=== PATIENT | female | born 1940 | race Asian ===

== ENCOUNTER 2019-06-07 14:34 | Inpatient (IN) | payer OTHER, MEDICAID ==
[~2019-06-07] VITALS: Ht 152.4 cm; Wt 66.8 kg
[2019-06-07 17:04] VITALS: BP_SYST 125
--- NOTE | 2019-06-07 17:07 | NUR ---
ADMISSION NOTES RECEIVED FROM LILY MANJARREZ, DIRECT ADMIT. PATIENT HAD A GRAHAM CATHETER CLOUDY URINE OUTPUT NOTED. RE-INSERT NEW GRAHAM CATHETER PER HOSPITAL PROTOCOL. MRSA NARES COLLECTED FROM PATIENT.
[2019-06-07] MEDS ORDERED: MERI500 IV (17:29)
[2019-06-07] MEDS ORDERED: IPRA3AMP9 INH (17:29)
[2019-06-07] MEDS ORDERED: DOCU-144 PO (17:29)
[2019-06-07] MEDS ORDERED: GUAI5SYR4 PO (17:29)
[2019-06-07] MEDS ORDERED: DIF100 PO (17:29)
[2019-06-07] MEDS ORDERED: DEXT50DI5 IV (17:29)
[2019-06-07] MEDS ORDERED: ACET-2165 PO (17:29)
--- NOTE | 2019-06-07 17:32 | NUR ---
Paged Dr. Veronica for admitting order.
[2019-06-07] MEDS ORDERED: TEMA15CA5 PO (17:48)
[2019-06-07] MEDS ORDERED: PRED20TA PO (17:48)
[2019-06-07] MEDS ORDERED: ANT30 PO (17:48)
[2019-06-07] MEDS ORDERED: MORPHINE SULFATE IVP (17:48)
[2019-06-07] MEDS ORDERED: VANCOMYCIN (17:48)
[2019-06-07] MEDS ORDERED: REGULAR INSULIN SUBCUT (17:48)
[2019-06-07] MEDS ORDERED: MORPHINE SULFATE IVF (17:48)
[2019-06-07] MEDS ORDERED: Zofran IVP (17:48)
--- NOTE | 2019-06-07 17:50 | NUR ---
Surgical consult called: for Josh Smith, regarding perforated abdomen, ordered by Dr. Veronica, spoke with Peg.
--- NOTE | 2019-06-07 18:02 | NUR ---
ID consult called: for Rosa Alexander, regarding sepsis, ordered by Dr. Veronica, spoke with Stella.
[2019-06-07 19:09] LABS: BILIRUBIN,URINE NEGATIVE (NEGATIVE); BLOOD, URINE 3+ (NEGATIVE); CLARITY/URINE SL CLOUDY (CLEAR); COLOR,URINE ORANGE (YELLOW); GLUCOSE,URINE NEGATIVE (NEGATIVE); KETONES,URINE 2+ (NEGATIVE); LEUKOCYTE ESTERASE ,URINE 1+ (NEGATIVE); NITRITE, URINE POSITIVE (NEGATIVE); PROTEIN URINE 2+ (NEGATIVE)
[2019-06-07 19:20] LABS: UROBILINOGEN,URINE >=8 (0.2-1.0)
[2019-06-07] MEDS ORDERED: VANCOMYCIN HCL 1,000 MG in NS 250 ML IV ONE (19:30)
[2019-06-07 19:38] LABS: BACTERIA,URINE MODERATE /HPF (None Seen); WBC,URINE 50-80 /HPF (0-3)
[2019-06-07 19:39] LABS: MUCUS,URINE None Seen /LPF (None Seen); YEAST,URINE Moderate /HPF (None Seen)
[2019-06-07 20:00] VITALS: BP_SYST 133
[2019-06-07] MEDS: D5/0.45 NS 1,000 ML IV SCH (20:10)
[2019-06-07 20:28] LABS: BASOPHILS % (AUTO) 0.1 % (0.0-2.0); EOSINOPHILS % (AUTO) 0.1 % (0.0-4.0); HEMATOCRIT 32.4 % (36-48); LYMPHOCYTES # (AUTO) 0.2 K/uL (1.0-5.5); LYMPHOCYTES % (AUTO) 2.7 % (20.5-51.5); MEAN CORPUSCULAR HEMOGLOBIN 33 pg (27-31); MEAN CORPUSCULAR HGB CONC 34 % (32-36); MEAN CORPUSCULAR VOLUME 96 fL (79.0-98.0); MONOCYTES # (AUTO) 0.3 K/uL (0.0-1.0); MONOCYTES % (AUTO) 3.6 % (1.7-9.3); NEUTROPHILS # (AUTO) 8.1 K/uL (1.8-7.7); NEUTROPHILS % (AUTO) 93.5 % (40.0-70.0); PLATELET COUNT (AUTO) 133 K/uL (130-430); RED BLOOD CELL COUNT(AUTO) 3.37 MIL/uL (4.2-6.2); RED CELL DISTRIBUTION WIDTH 14.6 % (9.0-15.0); WHITE BLOOD COUNT (AUTO) 8.7 K/uL (4.8-10.8)
--- NOTE | 2019-06-07 20:28 | NUR ---
NOTES: Dr. Scott called and updated on pt. status, family at bedside and asked pt. if having abdominal pain and denies any discomfort, no abdominal distention noted, abdomen soft to touch. kept NPO.Dr. Scott ordered stat CT scan of abdomen.
--- NOTE | 2019-06-07 20:51 | NUR ---
PAGED PAGING DR. DELMIS PRO FOR CLARIFICATION OF ORDERS, SPOKE WITH PEG.
--- NOTE | 2019-06-07 21:03 | NUR ---
NOTES: called Dr. Scott, order to transfer to ICU, verified about the transfer, the reason is because pt. has large amts. of free air. no result for the stat CT that was done. charge nurse Karolyn koroma and wind operations supervisor.
--- NOTE | 2019-06-07 21:17 | NUR ---
NOTES: DR. PRO here at bedside, about to transfer to ICU via bed. report given to nurse Saab. transferred with [facility] nurse Parr and leather products supervisor Amanuel .
[2019-06-07 21:30] VITALS: BP_SYST 133
--- NOTE | 2019-06-07 21:30 | NUR ---
TRANSFER ASSESSMENT Received pt from [employer], pt placed in ICU room 5 and placed on conveyor monitor. Family at bedside. VSS with SR seen on the monitor. Pt on RA tolerating well with O2 sats @ 97% and even and unlabored breathing. Pt has a TAWANNA midline, infusing d5 1/2 ns @ 60 cc/hr. Mcgovern Cath noted draining urine to gravity. Bed is locked and in lowest position, call light within reach, will cont to monitor.
--- NOTE | 2019-06-07 21:50 | NUR ---
PAGED Paged Sara Alexander for cardiac clearance Spoke for Chasity
[2019-06-07 21:57] LABS: ANION GAP 6 (5-15); CHLORIDE 102 mmol/L (98-107); GLUCOSE 144 mg/dL (70-99); POTASSIUM 3.6 mmol/L (3.5-5.1); SODIUM SERUM 136 mmol/L (136-145); UREA NITROGEN, BLOOD 24 mg/dL (8-21)
[2019-06-07 22:00] VITALS: BP_SYST 138
[2019-06-07 22:02] LABS: ALANINE AMINOTRANSFERASE 57 U/L (12-78); ALBUMIN 1.6 g/dL (3.4-4.8); ASPARTATE AMINOTRANSFERASE 52 U/L (10-37); INR 1.1 (0.8-1.2); PROTHROMBIN TIME 10.8 SECS (9.5-12.5); TOTAL BILIRUBIN 1.9 mg/dL (0.0-1.0)
[2019-06-07] MEDS ORDERED: PIPERACILLIN/TAZOBACTAM 3.375 GM/VIAL (ZOSYN) IV ONE (22:34)
[2019-06-07] MEDS: metroNIDAZOLE 500 mg/NS 100 ML IV SCH (22:39)
[2019-06-07 23:00] VITALS: BP_SYST 127
[2019-06-08] VITALS (27 sets, daily range): BP systolic 91–155
--- NOTE | 2019-06-08 00:10 | NUR ---
Pt in bed with eyes closed resting comfortably. No signs of acute distress or discomfort noted. Will cont to monitor pt.
[2019-06-08] MEDS: PIPERACILLIN/TAZO 3.375/DEX-IS 50 ML IV SCH ×4 (00:41→17:52)
--- NOTE | 2019-06-08 02:47 | NUR ---
Pt desats into the high 80's. Pt placed on 2L O2 via NC. Pt tolerating well with O2 sats @ 99% and even and unlabored breathing. Will cont to monitor pt.
--- NOTE | 2019-06-08 04:10 | NUR ---
Pt in bed with eyes closed resting comfortably, no signs of acute distress or discomfort noted. Pt repositioned at this time, pt tolerated well. Will cont to monitor pt.
[2019-06-08] MEDS: metroNIDAZOLE 500 mg/NS 100 ML IV SCH ×3 (05:09→22:14)
[2019-06-08 06:10] LABS: BASOPHILS % (AUTO) 0.2 % (0.0-2.0); EOSINOPHILS % (AUTO) 0.4 % (0.0-4.0); HEMATOCRIT 32.8 % (36-48); LYMPHOCYTES # (AUTO) 0.4 K/uL (1.0-5.5); LYMPHOCYTES % (AUTO) 4.4 % (20.5-51.5); MEAN CORPUSCULAR HEMOGLOBIN 32 pg (27-31); MEAN CORPUSCULAR HGB CONC 34 % (32-36); MEAN CORPUSCULAR VOLUME 94 fL (79.0-98.0); MONOCYTES # (AUTO) 0.5 K/uL (0.0-1.0); MONOCYTES % (AUTO) 5.3 % (1.7-9.3); NEUTROPHILS # (AUTO) 8.3 K/uL (1.8-7.7); NEUTROPHILS % (AUTO) 89.7 % (40.0-70.0); PLATELET COUNT (AUTO) 148 K/uL (130-430); RED BLOOD CELL COUNT(AUTO) 3.48 MIL/uL (4.2-6.2); RED CELL DISTRIBUTION WIDTH 14.7 % (9.0-15.0); WHITE BLOOD COUNT (AUTO) 9.3 K/uL (4.8-10.8)
[2019-06-08 06:32] LABS: ALANINE AMINOTRANSFERASE 55 U/L (12-78); ALBUMIN 1.6 g/dL (3.4-4.8); ANION GAP 6 (5-15); ASPARTATE AMINOTRANSFERASE 48 U/L (10-37); CALCIUM 7.7 mg/dL (8.4-11.0); CHLORIDE 101 mmol/L (98-107); CREATININE 0.49 mg/dL (0.55-1.30); GLUCOSE 131 mg/dL (70-99); POTASSIUM 3.3 mmol/L (3.5-5.1); SODIUM SERUM 137 mmol/L (136-145); TOTAL BILIRUBIN 2.1 mg/dL (0.0-1.0); UREA NITROGEN, BLOOD 21 mg/dL (8-21)
--- NOTE | 2019-06-08 07:20 | NUR ---
Report given to oncoming RN using SBAR format and pt care was endorsed. No signs of acute distress or discomfort noted.
--- NOTE | 2019-06-08 07:26 | NUR ---
Opening Note: Received plan of care via sbar from endorsing nurse JODY Saab. Completed patient round.
--- NOTE | 2019-06-08 09:24 | NUR ---
Nutrition Update Kendell Scale 14 noted. Pt admitted for sepsis acute abdomen Diet: NPO BMI: 26.4 kg/m2 RD to follow per nutrition care standards.
[2019-06-08] MEDS: D5/0.45 NS 1,000 ML IV SCH ×2 (10:00→22:15)
--- NOTE | 2019-06-08 11:00 | NUR ---
Received call from Dr. Alexander who advised that he is not able to proceed with the ct guided drainage. There is too much free air. Dr. Alexander has tried contacting Dr. Scott to provide his recommendations but unable. Dr. Scott when called earlier at 1000 was in surgery.
--- NOTE | 2019-06-08 11:09 | NUR ---
Called Dr. Scott office left message for call back with legal receptionist. Per Spinner Hand Dr. Scott is doing a robotic aided surgery and wont be finished for another hour 1 or 2.
--- NOTE | 2019-06-08 11:53 | NUR ---
. PAGED DR PIERSON LEFT MESSAGE TO TOMASZ, TO NOTIFY OF PATIENT'S SURGERY TODAY AT 1500.
--- NOTE | 2019-06-08 13:57 | NUR ---
Noted ecchymosis around upper right arm midline puncture site. Site does not appear infiltrated, no drainage, no swelling at site. Site is still patent.
--- NOTE | 2019-06-08 19:10 | NUR ---
RECEIVED NURSING REPORT FROM DAY SHIFT CHRIS Jarvis, PATIENT WAS IN O.R DURING ABDOMEN SURGERY NOW
--- NOTE | 2019-06-08 19:24 | NUR ---
Closing Note Provided plan of care to receiving JODY Terrell via sbar.
[2019-06-08] MEDS ORDERED: HYDROcodone/ACETAMIN 5-325 MG TAB (NORCO/ VICODIN) PO PRN (20:30)
[2019-06-08] MEDS ORDERED: fentaNYL CITRATE/PF 100 MCG/2 ML AMP IVP PRN ×2 (20:30)
[2019-06-08] MEDS ORDERED: HYDROmorphone 2 MG/ML VIAL IVP PRN (20:30)
[2019-06-08] MEDS ORDERED: ACETAMINOPHEN 325 MG TABLET PO PRN (20:30)
[2019-06-08] MEDS ORDERED: ONDANSETRON HCL 4 MG/2 ML VIAL IVP PRN (20:30)
[2019-06-08] MEDS ORDERED: BUPIVACAINE /EPINEPHRINE/PF 0.25% 30 ML VIAL INJ ONE (20:45)
[2019-06-08] MEDS ORDERED: MIDAZOLAM HCL 5 MG/ML VIAL (VERSED) IV ONE (20:45)
[2019-06-08] MEDS ORDERED: fentaNYL CITRATE/PF 100 MCG/2 ML AMP ONE (20:45)
[2019-06-08] MEDS ORDERED: LR 1,000 ML IV.SOLN IV ONE (20:45)
[2019-06-08] MEDS ORDERED: ROCURONIUM BROMIDE 10 MG/ML (ZEMURON) ONE (20:45)
[2019-06-08] MEDS ORDERED: NS IRRIG SOLN 1000 ML IR ONE (20:45)
[2019-06-08] MEDS ORDERED: PROPOFOL 200MG/ 20ML VIAL (DIPRIVAN) IV ONE (20:45)
[2019-06-08] MEDS ORDERED: SEVOFLURANE 15 MIN GAS INH ONE (20:45)
--- NOTE | 2019-06-08 20:45 | NUR ---
AT 2045 P.M, PATIENT WAS FINISHED ABDOMEN SURGERY : EXP-LAPAR, SIGMOIDECTOMY, COLOSTOMY, AND TRANSFER FROM O.R COMEBACK TO ICU ROOM 5, PATIENT IS LETHARGIC,INTUBATED IN O.R , ET-TUBE SIZE 8.0, LIP LINE 23 CM VIA VENTILATOR, VENT SETTING : AC 12, TV 500, FIO2 100% PEEP 5 , ORDERED FOLLOW UP STAT ABG, AND CHEST X-RAY, START PACU CARE
--- NOTE | 2019-06-08 21:15 | NUR ---
FINISHED PACU CARE, RECEIVED NURSING REPORT FROM PACU LYDIA Jarvis
--- NOTE | 2019-06-08 21:15 | NUR ---
Contacted Dr Foreman and updated on pt condition, Re: pt on vent. Gave orders.
[2019-06-08] MEDS: MORPHINE 4 MG/ML INJ. SYRINGE IVP PRN (21:32)
[2019-06-08] MEDS: VANCOMYCIN HCL 750 MG in NS 250 ML IV SCH (21:32)
--- NOTE | 2019-06-08 21:40 | NUR ---
AFTER ABG RESULT, Dr. BLACKMAN ORDERED ,CHANGE VENTILATOR SETTING TO AC 12, TV 450, FIO2 60% ,PEEP 5, AND ORDERED KEEP NPO CONTINUOUS, AND RIGHT NARES NG-TUBE WITH LOWER PRESSURE INTERMITTENT SUCTION, GRAHAM INTACT, DRAIN OUT CLEAR YELLOW URINE, WAS SEE PATIENT AT 2100 P.M, THE FAMILIES WAS SEE PATIENT TOO
--- NOTE | 2019-06-08 23:27 | NUR ---
PATIENT,S BLOOD PRESSURE IS 86-56 MMHG - 91/55 MMHG, ALSO WAS AWAKE NOW ,OPEN EYES AND TRY PULL ALL TUBES, AT 2310 P.M, Dr. GENNARO GAMEZ SEE PATIENT, ORDERED DISCONTINUE ZOSYN , AND START MEROPENEM, INCREASE IVF TO 125 ML/HOUR, ON LEVOPHED DRIP NEED, KEEP SBP > 90 MMHG, ON BILATERAL WRIST SOFT RESTRAINT FOR SAFETY
[2019-06-09] VITALS (30 sets, daily range): BP systolic 74–134
[2019-06-09] MEDS ORDERED: MEROPENEM 500 MG in NS 50 ML IV SCH ×2
[2019-06-09] MEDS ORDERED: NOREPINEPHRINE 4 MG/4 ML VIAL IV ONE (00:09)
[2019-06-09] MEDS: NOREPINEPHRINE BITARTRATE 4 MG in D5W 246 ML IV PRN ×2 (00:11→14:49)
--- NOTE | 2019-06-09 00:13 | NUR ---
AT 0010 B.P 74/48 MMHG, H.R 71, ORDERED START LEVOPHED DRIP 4 MCG/MIN, KEEP SBP > 90 MMHG
[2019-06-09] MEDS ORDERED: MEROPENEM 500 MG VIAL IV ONE (00:33)
[2019-06-09] MEDS: MORPHINE 4 MG/ML INJ. SYRINGE IVP PRN ×3 (00:57→17:55)
--- NOTE | 2019-06-09 01:10 | NUR ---
TITRATED FIO2 TO 45 % BY BORIS Jimenez
[2019-06-09] MEDS: FLUCONAZOLE 200 mg/ NS 100 ML IV SCH (03:11)
[2019-06-09] MEDS ORDERED: FLUCONAZOLE 200 mg/ NS 100 ML IV ONE (03:19)
--- NOTE | 2019-06-09 05:25 | NUR ---
AT 0525 A.M TITRATED FIO2 TO 30 % BY BORIS Jimenez O2 SAT. 99-100%
[2019-06-09] MEDS: MEROPENEM 500 MG in NS 50 ML IV SCH ×3 (05:31→21:25)
[2019-06-09] MEDS: metroNIDAZOLE 500 mg/NS 100 ML IV SCH ×3 (05:32→21:25)
--- NOTE | 2019-06-09 07:15 | NUR ---
Received patient and report from [facility] shift nurse Merna. Patient in bed side rails up, call light with in reach. In no acute distress. Breathing even and unlabored. Currently sinus rhythm.
--- NOTE | 2019-06-09 07:28 | NUR ---
GIVE COMPLETE NURSING REPORT TO DAY SHIFT ALPHONSO Jarvis
[2019-06-09 09:33] LABS: BASOPHILS % (AUTO) 0.2 % (0.0-2.0); EOSINOPHILS % (AUTO) 0.1 % (0.0-4.0); HEMATOCRIT 31.8 % (36-48); HEMOGLOBIN 10.7 g/dL (12.0-16.0); LYMPHOCYTES # (AUTO) 0.4 K/uL (1.0-5.5); MEAN CORPUSCULAR HEMOGLOBIN 32 pg (27-31); MEAN CORPUSCULAR HGB CONC 34 % (32-36); MEAN CORPUSCULAR VOLUME 95 fL (79.0-98.0); MONOCYTES # (AUTO) 0.1 K/uL (0.0-1.0); MONOCYTES % (AUTO) 0.7 % (1.7-9.3); NEUTROPHILS # (AUTO) 12.7 K/uL (1.8-7.7); PLATELET COUNT (AUTO) 182 K/uL (130-430); RED BLOOD CELL COUNT(AUTO) 3.35 MIL/uL (4.2-6.2); RED CELL DISTRIBUTION WIDTH 14.7 % (9.0-15.0); WHITE BLOOD COUNT (AUTO) 13.2 K/uL (4.8-10.8)
[2019-06-09] MEDS: ENOXAPARIN SODIUM 40 MG/0.4 ML SYRINGE SUBCUT SCH (09:40)
[2019-06-09 09:50] LABS: ALANINE AMINOTRANSFERASE 42 U/L (12-78); ALBUMIN 1.4 g/dL (3.4-4.8); ANION GAP 8 (5-15); ASPARTATE AMINOTRANSFERASE 43 U/L (10-37); CALCIUM 7.2 mg/dL (8.4-11.0); CHLORIDE 101 mmol/L (98-107); CREATININE 0.86 mg/dL (0.55-1.30); GLUCOSE 227 mg/dL (70-99); POTASSIUM 3.7 mmol/L (3.5-5.1); SODIUM SERUM 135 mmol/L (136-145); TOTAL BILIRUBIN 2.4 mg/dL (0.0-1.0); UREA NITROGEN, BLOOD 19 mg/dL (8-21)
[2019-06-09] MEDS: ONDANSETRON HCL 4 MG/2 ML VIAL IVP PRN ×2 (10:02→17:54)
--- NOTE | 2019-06-09 10:48 | NUR ---
1036 CHANGED VENT SETTINGS TO SIMV4, VT400, PS12, PEEP +5, FIO2 28% PER MD MCGILL. PT TOLERATING WELL. WILL CONTINUE TO MONITOR PT.
--- NOTE | 2019-06-09 13:50 | NUR ---
Dietitian Recommendations * Consider PPN support if/when medically appropriate LP, RD Please refer to Nutrition Assessment for details. Addendum: 06/09/19 at [address] Amended: Links added.
[2019-06-09] MEDS ORDERED: MEROPENEM 500 MG VIAL IV SCH (14:00)
[2019-06-09] MEDS: D5/0.45 NS 1,000 ML IV SCH ×2 (14:48→19:55)
--- NOTE | 2019-06-09 15:30 | NUR ---
Oh at bedside, requested I call vice president diversity to get order for removal of intubation. Addendum: 06/09/19 at 1606 by Alivia Wolff RN duplicate
--- NOTE | 2019-06-09 15:30 | NUR ---
Oh at bedside. Requested I call concrete curer for call for removal of intubation.
--- NOTE | 2019-06-09 16:35 | NUR ---
Md Norton approved extubation order and place patient on 6 liters of 02 via NC. ABG to be collected 1 hour after extubation. RT Berrios made aware. Orders placed.
--- NOTE | 2019-06-09 17:03 | NUR ---
1645 EXTUBATED PT AND PLACED NC 3 LPM PER MD MCGILL. SPO2 96%, HR 99. PT TOLERATING WELL.
--- NOTE | 2019-06-09 18:11 | NUR ---
Removed the restraints, patient tolerating well.
--- NOTE | 2019-06-09 19:11 | NUR ---
Endorsed patient and gave report to oncoming nurse Merna. Patient sleeping in no acute distress. Side rails up. Call light with in reach.
--- NOTE | 2019-06-09 19:15 | NUR ---
RECEIVED NURSING REPORT FROM DAY SHIFT ALPHONSO Jarvis
[2019-06-09] MEDS: VANCOMYCIN HCL 750 MG in NS 250 ML IV SCH (20:00)
--- NOTE | 2019-06-09 20:09 | NUR ---
AT 1999 P.M, SEE PATIENT, ORDERED GIVE LASIX 40 MG IVP NOW, AND LASIX 40 MG IVP DAILY X 3 DAYS AND CONSULT , TPN / PHARMACY TO DOSE ,ACCU CHECK EVERY 6 HOURS WITH REGULAR INSULIN SLIDING SCALE WITH TPN THERAPY, NEW PICC LINE PLACEMENT, REDUCED IVF TO 50 ML/HOUR, FOLLOW UP CBC, CMP IN A.M
--- NOTE | 2019-06-09 20:20 | NUR ---
PAGED FOR PROGRAMMER ANALYST CONSULTANT NEW CONSULT ( REDUCED URINE OUTPUT ), WAITING FOR DOCTOR CALL BACK
[2019-06-09] MEDS ORDERED: FUROSEMIDE 40 MG/4 ML VIAL IVP SCH ×2 (20:35→21:00)
[2019-06-09] MEDS ORDERED: DEXTROSE 50% JECT 50 ML DISP.SYRIN IV SCH (20:45)
[2019-06-09] MEDS ORDERED: TEMAZEPAM 15 MG CAPSULE PO PRN (20:45)
[2019-06-09] MEDS ORDERED: ACETAMINOPHEN 325 MG TABLET PO PRN (20:45)
[2019-06-09] MEDS ORDERED: MAG-AL HYDROX/SIMETH 30 ML UDC PO PRN (20:45)
[2019-06-09] MEDS ORDERED: IPRATROPIUM/ALBUTEROL SULFATE 3 ML AMPUL.NEB (DUONEB) INH PRN (20:45)
--- NOTE | 2019-06-09 21:30 | NUR ---
CALLED PATIENT,S SON FELY, GET PICC LINE PHONE CONSENT
[2019-06-09 21:44] LABS: INR 1.2 (0.8-1.2); PROTHROMBIN TIME 12.4 SECS (9.5-12.5)
[2019-06-10] VITALS (20 sets, daily range): BP systolic 95–139
--- NOTE | 2019-06-10 01:20 | NUR ---
ORDERED INSERT NEW PICC LINE IN LEFT UPPER ARM, DOUBLE LUMENS, GOOD BLOOD RETURN, AFTER CHEST X-RAY IS CORRECT POSITION
--- NOTE | 2019-06-10 01:45 | NUR ---
ORDERED REMOVED RIGHT UPPER ARM OLD MIDLINE, CHECK CATHETER BODY IS INTACT
[2019-06-10] MEDS: FLUCONAZOLE 200 mg/ NS 100 ML IV SCH (02:14)
--- NOTE | 2019-06-10 02:30 | NUR ---
PATIENT IS SEVERE CONFUSION, PULLED OUT NG-TUBE, ORDERED WEAR BILATERAL WRIST SOFT RESTRAINT FOR SAFETY, ALSO INSERT NEW NG-TUBE IN LEFT NARES ,AFTER X-RAY IS CORRECT POSITION IN STOMACH
[2019-06-10] MEDS: MEROPENEM 500 MG in NS 50 ML IV SCH ×3 (05:28→22:27)
[2019-06-10] MEDS: metroNIDAZOLE 500 mg/NS 100 ML IV SCH ×3 (05:28→22:27)
--- NOTE | 2019-06-10 07:05 | NUR ---
SPOKE TO REGARDING OF NEW CONSULT AND UPDATED PATIENT,S CONDITION, DOCTOR VERBALIZED : WILL SEE PATIENT TODAY
[2019-06-10 07:13] LABS: EOSINOPHILS % (AUTO) 0.2 % (0.0-4.0); HEMOGLOBIN 8.1 g/dL (12.0-16.0); MONOCYTES # (AUTO) 0.4 K/uL (0.0-1.0); NEUTROPHILS # (AUTO) 12.1 K/uL (1.8-7.7); WHITE BLOOD COUNT (AUTO) 12.9 K/uL (4.8-10.8)
--- NOTE | 2019-06-10 07:13 | NUR ---
GIVE COMPLETE NURSING REPORT TO DAY SHIFT ALPHONSO Jarvis
--- NOTE | 2019-06-10 07:15 | NUR ---
Received patient from [facility] shift nurse. Patient sleeping in bed in no acute distress. Side rails up. Call light with in reach. Breathing even and unlabored.
[2019-06-10 07:40] LABS: ALANINE AMINOTRANSFERASE 38 U/L (12-78); ALBUMIN 1.2 g/dL (3.4-4.8); ANION GAP 6 (5-15); ASPARTATE AMINOTRANSFERASE 33 U/L (10-37); CHLORIDE 102 mmol/L (98-107); CREATININE 0.91 mg/dL (0.55-1.30); GLUCOSE 169 mg/dL (70-99); SODIUM SERUM 135 mmol/L (136-145); TOTAL BILIRUBIN 1.3 mg/dL (0.0-1.0); UREA NITROGEN, BLOOD 21 mg/dL (8-21)
[2019-06-10 07:51] LABS: BASOPHILS % (AUTO) 0.1 % (0.0-2.0); HEMATOCRIT 24.2 % (36-48); LYMPHOCYTES # (AUTO) 0.4 K/uL (1.0-5.5); MEAN CORPUSCULAR HEMOGLOBIN 32 pg (27-31); MEAN CORPUSCULAR HGB CONC 33 % (32-36); MEAN CORPUSCULAR VOLUME 96 fL (79.0-98.0); MONOCYTES % (AUTO) 2.9 % (1.7-9.3); NEUTROPHILS % (AUTO) 93.8 % (40.0-70.0); PLATELET COUNT (AUTO) 165 K/uL (130-430); RED BLOOD CELL COUNT(AUTO) 2.52 MIL/uL (4.2-6.2); RED CELL DISTRIBUTION WIDTH 14.7 % (9.0-15.0)
[2019-06-10 07:55] LABS: CALCIUM 6.9 mg/dL (8.4-11.0)
[2019-06-10] MEDS ORDERED: *TPN PER PHARMACY XX PRN (08:00)
[2019-06-10] MEDS: FUROSEMIDE 40 MG/4 ML VIAL IVP SCH (08:20)
[2019-06-10] MEDS: FLUCONAZOLE 100 MG TABLET (DIFLUCAN) PO SCH (08:20)
[2019-06-10] MEDS: D5/0.45 NS 1,000 ML IV SCH (08:21)
[2019-06-10] MEDS: ENOXAPARIN SODIUM 40 MG/0.4 ML SYRINGE SUBCUT SCH (08:22)
--- NOTE | 2019-06-10 08:39 | NUR ---
Pagecruzito Pierre, spoke with exchange.
[2019-06-10] MEDS ORDERED: PREDNISONE 20 MG TABLET PO SCH (09:00)
[2019-06-10] MEDS ORDERED: POTASSIUM CHLORIDE 30 MEQ in NS 250 ML IV ONE (10:30)
[2019-06-10] MEDS ORDERED: CALCIUM GLUCONATE 2 GM in NS 100 ML IV ONE (10:30)
--- NOTE | 2019-06-10 10:34 | NUR ---
Collin VILLARREAL Oh.
--- NOTE | 2019-06-10 11:00 | NUR ---
MD Norton at bedside.
[2019-06-10 11:12] LABS: PHOSPHORUS 3.1 mg/dL (2.7-4.5)
--- NOTE | 2019-06-10 11:34 | NUR ---
Oh called back, reported hemoglobin. New order of 1 unit of packed red blood cells. May transfer to tele unit. Orders placed and carried out.
--- NOTE | 2019-06-10 12:58 | NUR ---
Pre-transfusion for 1 unit PRBCs Temp 97.0, heart rate 91, respirations 33, b/p 124/74.
--- NOTE | 2019-06-10 13:00 | NUR ---
BT INITIATION: Consent signed per son agreeing to administration of blood. Blood has been type and crossmatched. Blood sent from blood bank. Information on unit of blood checked against patient wristband at bedside by two nurses. All information matches. Patient or responsible republican informed of potential complications associated with blood transfusion. Informed of possible transfusion reaction symptoms. Aware of need to notify nurse at once of itching, shortness of breath, flushing, feeling of impending doom, or other symptoms not previously present. Vital signs taken within 5 minutes prior to initiation of transfusion temp 97.0, pulse 91, respirations 33, b/p 124/74. RN will remain with patient for first 15 minutes of transfusion at which time vital signs will be re-assessed.
--- NOTE | 2019-06-10 13:04 | NUR ---
1 unit PRBC verified and started with nurse Hancock at 1300. At bedside to monitor, patient tolerating well.
--- NOTE | 2019-06-10 13:15 | NUR ---
15 minutes after start for 1 unit PRBCs Temp 98.0, heart rate 94, respirations 18, b/p 123/66.
--- NOTE | 2019-06-10 13:15 | NUR ---
Patient in no acute distress. Tolerating transfusion well. Vital signs stable.
[2019-06-10] MEDS ORDERED: D10W 1,000 ML IV SCH (13:30)
--- NOTE | 2019-06-10 13:31 | NUR ---
Patient changed to tele status.
--- NOTE | 2019-06-10 13:45 | NUR ---
MD Veronica at bedside.
--- NOTE | 2019-06-10 14:00 | NUR ---
MD Pierre at bedside.
--- NOTE | 2019-06-10 15:00 | NUR ---
Nutrition F/U RD reviewed pt's current EMR record including diet Hx, physician notes, nursing notes, pertinent labs/meds/procedures, care trends, and care activity. Admitting Diagnosis Sepsis, acute abd Medical History Comment: PMH: COPD, HTN, DM, HLD, sepsis, aspiration pneumonia, acute respiratory failure, sacral decubitus ulcer, protein calorie malnutrition, CKD, thrombocytopenia, recurrent UTI per physician notes Pt also found w/ peritonitis per physician notes Current Diet Order: NPO x2 days Current Nutrition Support: TPN D40%, AA10% at 42 ml/hr via central line -- will begin later at 2100 Subjective Info: Pt seen resting in bed, extubated yesterday at 1645 per RT notes. Pt was receiving 1 unit of PRBC w/ RN at beside providing care at time of RD visit. Pt appeared to have edema to bilateral hands. RD spoke w/ pharmacist at 1430 to inquire about plans for lipids -- pharmacist stated pt is septic, and lipids are not indicated at this time. Pt is POD 2 s/p sigmoid colectomy and end colostomy drainage intraoperative diverticulitis abscess 06/08/19. NEW Estimated Energy Expenditure (kcals/day) 0424-1984 kcal/day (30-35 kcal/kg Adj IBW for sepsis, surgical healing, wound healing) Estimated Protein Required (g/day) 59-98 gm/day (1.2-2 gm/kg Adj IBW for CKD, surgical healing, wound healing, sepsis) Estimated Fluid Required (l/day) Per physician d/t CKD Problem/Etiology/Signs/Symptoms Increased nutritional needs related to metabolic demands as evidenced by estimated nutritional requirements for surgical healing and sepsis. *ongoing Expected Outcomes/Goals - Monitor provision of nutrition support w/ goal of pt meeting at least 50% of estimated nutritional needs, labs trending WNL, normal GI function, and skin integrity/wt maintenance Dietitian Recommendations * Recommend TPN D40%, AA10% at 50 ml/hr, IL20% at 10 ml/hr via central line (add lipids when no longer septic) Provides: 1536 kcal/day, 60 gm protein/day, 1440 ml total volume/day, and GIR: 2.7 gm CHO/kg/min Meets: 104% of lower end of estimated caloric needs and 102% of lower end of estimated protein needs Follow Up High Risk: F/U in 2-3 days
--- NOTE | 2019-06-10 15:15 | NUR ---
Blood transfusion of 1 unit PRBCs complete, in no acute distress. Temp 97.8, heart rate 80, respirations 30, b/p 136/71.
--- NOTE | 2019-06-10 15:50 | NUR ---
Returned blood transfusion completion slip to lab.
--- NOTE | 2019-06-10 15:55 | NUR ---
Returned urine sample to lab as ordered by MD Pierre.
--- NOTE | 2019-06-10 16:38 | NUR ---
Dietitian Recommendations * Recommend TPN D40%, AA10% at 50 ml/hr, IL20% at 10 ml/hr via central line (add lipids when no longer septic) Provides: 1536 kcal/day, 60 gm protein/day, 1440 ml total volume/day, and GIR: 2.7 gm CHO/kg/min Meets: 104% of lower end of estimated caloric needs and 102% of lower end of estimated protein needs LP, RD Please refer to Nutrition F/U for details.
[2019-06-10] MEDS ORDERED: D5W 1,000 ML IV PRN (17:14)
[2019-06-10] MEDS ORDERED: DEXTROSE 50% JECT 50 ML DISP.SYRIN IVP PRN (17:15)
[2019-06-10] MEDS ORDERED: GLUCOSE 15 GM GEL (in 37.5 GM TUBE) PO PRN (17:15)
[2019-06-10] MEDS: INSULIN REGULAR, HUMAN 100 UNITS/ML, 10 ML VIAL (humuLIN R) SUBCUT PRN (17:33)
--- NOTE | 2019-06-10 19:10 | NUR ---
AT 1910 RECEIVED NURSING REPORT FROM DAY SHIFT ALPHONSO Jarvis
--- NOTE | 2019-06-10 20:30 | NUR ---
pt.received via the icu unit,sebastian holliday;rn conveyed the pt's report/data.pt.presents isolation status;esbl;urine.pt.presents restraints;wrist; bilateral.pt.presents picc line;lock.tpn fluids to be initiated.pt.presents colostomy intact;patent.pt.presents cortes catheter;intact;patent;urine content present.pt.presents o2 therapy via nasal cannulae;administered @2l/min via nasal cannual:-tue%=96%.language barrier extant;bahraini.pt.assessed for cleanliness.pt.repositioned.call light/ telephone placed w/in the reach of the pt.
--- NOTE | 2019-06-10 20:45 | NUR ---
AT 2034 P.M, SEE PATIENT, ORDERED REMOVED NG-TUBE, AT 2044 P.M GIVE COMPLETE NURSING REPORT TO THOMAS Jarvis, ORDERED TRANSFER TO TELE ROOM 118
[2019-06-10] MEDS ORDERED: [UNRECOGNIZED DRUG - OTHER] IV SCH ×10 (21:00)
[2019-06-10] MEDS ORDERED: K PHOS IV SCH ×10 (21:00)
[2019-06-10] MEDS ORDERED: TPN CENTRAL IV SCH ×10 (21:00)
[2019-06-10] MEDS ORDERED: SODIUM CHLORIDE IV SCH ×10 (21:00)
[2019-06-10] MEDS ORDERED: POTASSIUM ACETATE IV SCH ×10 (21:00)
--- NOTE | 2019-06-10 22:00 | NUR ---
pt.assessed.restraints intact.pt.assessed for cleanliness.pt.repositioned.colostomy intact;patent;fecal material; present, picc line intact;patent;iv fluids/tpn infusing.cortes catheter intact;patent;urine content present.general status stable.respiratory status stable;02-sat%=96%.i have initiast eh administration of the tpn.i have initiated the administration of the abx;merrim,flagyl, vancomycin.picc line flushed;to initiate the administration of the fluids/abx.call light/telephone placed w/in the reach of the pt.
[2019-06-10] MEDS: VANCOMYCIN HCL 750 MG in NS 250 ML IV SCH (22:26)
[2019-06-11] VITALS: BP_SYST 125
--- NOTE | 2019-06-11 | NUR ---
pt.assessed.v/s assessed;values w/in normal limits.restraints intact.pt.assessed for cleanliness.pt.repositioned. colostomy assessed;intact;patent;fecal material present.cortes catheter assessed;intact;patent:urine content present.picc line assessed intact;patent.tpn infusing.general status stable;respiratory status stable;02-sat%= 96%.call light/telphone placed w/in reach of the pt. Addendum: 06/11/19 at 0314 by Sebastián Chandra RN blood glucose assessed;value;222mg/dl.i have administered insulin;regular;4-units per sliding scale parameters.
[2019-06-11] MEDS: INSULIN REGULAR, HUMAN 100 UNITS/ML, 10 ML VIAL (humuLIN R) SUBCUT PRN ×5 (00:43→23:43)
[2019-06-11 01:06] LABS: BILIRUBIN,URINE 1+ (NEGATIVE); BLOOD, URINE 3+ (NEGATIVE); CLARITY/URINE CLEAR (CLEAR); COLOR,URINE YELLOW (YELLOW); GLUCOSE,URINE NEGATIVE (NEGATIVE); KETONES,URINE TRACE (NEGATIVE); LEUKOCYTE ESTERASE ,URINE NEGATIVE (NEGATIVE); NITRITE, URINE POSITIVE (NEGATIVE); PROTEIN URINE 1+ (NEGATIVE)
[2019-06-11 01:20] LABS: BACTERIA,URINE MODERATE /HPF (None Seen); RBC,URINE 20-50 /HPF (0-3); WBC,URINE 0-3 /HPF (0-3)
[2019-06-11 01:21] LABS: FINE GRANULAR CASTS,URINE 0-10 /LPF (None Seen); HYALINE CASTS, URINE 0-10 /LPF (None Seen)
--- NOTE | 2019-06-11 02:00 | NUR ---
pt.assessed.restraints assessed;intact.pt.assessed for cleanliness.colostomy assessed;intact;patent;fecal material;present,. pic laurent assessed.intact;patent.tpn infusing.iv fluids infusing.abx x3 have bee administered.cortes catheter intact;patent; urine content present.pt.repositioned.o2-sat%=96%.call light/telephone placed w/in the reach of the pt.
--- NOTE | 2019-06-11 04:00 | NUR ---
pt.assessed.pt.assessed for cleanliness.pt.cleaned.pt.repositioned.i have assessed the colostomy intact;patent.picc line intact;patent;iv fluids infusing.tpn;infusing.cortes catheter intact;patent;urine content present.i have attended to the wounds care.sacrum/rt.buttocks.i have attended to the cleaning of the abdomen;incision.open to air.general statu stable.respiratory status stable;unlabored:02-sat% =96%.call light/telephone placed w/in reach of the pt.
[2019-06-11] MEDS: MEROPENEM 500 MG in NS 50 ML IV SCH ×3 (05:12→22:53)
[2019-06-11] MEDS: metroNIDAZOLE 500 mg/NS 100 ML IV SCH ×3 (05:12→23:46)
--- NOTE | 2019-06-11 06:00 | NUR ---
pt.assessed.pt.assessed for cleanliness.pt.repositioned.i have assessed the colostomy;intact;patent.i have as the picc line;intact;patent;tpn/ iv fluids infusing/i have assessed the cortes catheter intact;patent;urine content present.i have assessed the blood glucose;value;270mg/dl. i have administered;regular insulin;6-units;sliding scale parameters.i have cleaned the abdomen incision.i have weighed the pt;chf/lasix. call light/telephone placed w/in reach of the pt.
[2019-06-11 06:49] LABS: BASOPHILS % (AUTO) 0.2 % (0.0-2.0); EOSINOPHILS # (AUTO) 0.2 K/uL (0.0-0.4); EOSINOPHILS % (AUTO) 1.1 % (0.0-4.0); HEMATOCRIT 27.3 % (36-48); HEMOGLOBIN 9.4 g/dL (12.0-16.0); LYMPHOCYTES # (AUTO) 0.2 K/uL (1.0-5.5); LYMPHOCYTES % (AUTO) 1.6 % (20.5-51.5); MEAN CORPUSCULAR HEMOGLOBIN 32 pg (27-31); MEAN CORPUSCULAR HGB CONC 34 % (32-36); MEAN CORPUSCULAR VOLUME 94 fL (79.0-98.0); MONOCYTES # (AUTO) 0.3 K/uL (0.0-1.0); NEUTROPHILS # (AUTO) 13.6 K/uL (1.8-7.7); NEUTROPHILS % (AUTO) 95.1 % (40.0-70.0); PLATELET COUNT (AUTO) 178 K/uL (130-430); RED CELL DISTRIBUTION WIDTH 14.5 % (9.0-15.0); WHITE BLOOD COUNT (AUTO) 14.3 K/uL (4.8-10.8)
[2019-06-11 07:28] LABS: ALANINE AMINOTRANSFERASE 40 U/L (12-78); ALBUMIN 1.2 g/dL (3.4-4.8); ASPARTATE AMINOTRANSFERASE 33 U/L (10-37); CALCIUM 7.6 mg/dL (8.4-11.0); CHLORIDE 100 mmol/L (98-107); CREATININE 0.81 mg/dL (0.55-1.30); GLUCOSE 293 mg/dL (70-99); PHOSPHORUS 1.8 mg/dL (2.7-4.5); TOTAL BILIRUBIN 1.3 mg/dL (0.0-1.0); UREA NITROGEN, BLOOD 17 mg/dL (8-21)
--- NOTE | 2019-06-11 07:39 | NUR ---
Opening Note received bedside SBAR report from shift supervisor film processing RN, patient resting in bed, no acute distress noted, respirations even and unlabored on 2L nasal cannula, no pain noted using FLACC scale, educated patient on use of call light and asked to call for assistance, call light in reach, bed in low and locked position, bed alarm on. Addendum: 06/11/19 at 0744 by Kelsie Hunter RN contact isolation precautions in place.
[2019-06-11 07:54] LABS: ANION GAP 5 (5-15); SODIUM SERUM 134 mmol/L (136-145)
[2019-06-11 07:56] LABS: POTASSIUM 2.8 mmol/L (3.5-5.1)
[2019-06-11 07:59] VITALS: BP_SYST 142
[2019-06-11 08:00] VITALS: BP_SYST 142
--- NOTE | 2019-06-11 08:07 | NUR ---
PAGED DR. AL PER NURSE DIALED [phone] SPOKE WITH JENNIE
--- NOTE | 2019-06-11 08:22 | NUR ---
Spoke with Physician Spoke with Dr. Pierre, informed him of critical lab potassium 2.8, also informed him of Mg 1.6, new orders received, verified with read back.
[2019-06-11] MEDS: PREDNISONE 10 MG TABLET PO SCH (08:23)
[2019-06-11] MEDS: FLUCONAZOLE 100 MG TABLET (DIFLUCAN) PO SCH (08:23)
[2019-06-11] MEDS: ENOXAPARIN SODIUM 40 MG/0.4 ML SYRINGE SUBCUT SCH (08:24)
[2019-06-11] MEDS: FUROSEMIDE 40 MG/4 ML VIAL IVP SCH (08:24)
--- NOTE | 2019-06-11 08:35 | NUR ---
Physician Rounds Dr. Weir at bedside examining patient.
[2019-06-11] MEDS ORDERED: MAGNESIUM SULFATE 50 ML IV ONE (09:00)
[2019-06-11] MEDS ORDERED: POTASSIUM CHLORIDE 30 MEQ in NS 250 ML IV ONE (09:00)
--- NOTE | 2019-06-11 09:47 | NUR ---
Spoke with Pharmacist/Spoke with patients family spoke with Pharmacist denzel Lainez okay to give potassium rider and magnesium rider while TPN is infusing, spoke with patients family at bedside, educated them on diet orders for clear liquid diet, patients family verbalized understanding, patient tolerated breakfast well, no vomiting, no acute distress noted.
[2019-06-11] MEDS: D5/0.45 NS 1,000 ML IV SCH (10:55)
[2019-06-11 11:36] VITALS: BP_SYST 122
--- NOTE | 2019-06-11 12:15 | NUR ---
RN Rounds patient sitting up in bed eating lunch with assistance from DIXONAC OPERATOR, tolerating well, respirations even and unlabored, no pain noted using FLACC scale, no acute distress noted.
--- NOTE | 2019-06-11 14:44 | NUR ---
RN Rounds patient resting in bed, respirations even and unlabored on 2L nasal cannula, no acute distress noted, no pain noted using FLACC scale.
[2019-06-11 15:28] VITALS: BP_SYST 154
[2019-06-11] MEDS ORDERED: MENTHOL/ZINC OXIDE 113 GM OINT. TP PRN (15:30)
[2019-06-11] MEDS ORDERED: BALSAM PERU/CASTOR OIL 60 GM OINT...G. TP ONE (15:30)
--- NOTE | 2019-06-11 16:30 | NUR ---
WOUND EVALUATION: Late note for 06/11/19 at 1630 secondary to patient care. Wound Consult received from Dr. Veronica. Thank you, Dr. Veronica, for the consult. Patient received in a [place] Bed with a mattress, awake, alert, and oriented. Patient is unable to turn independently. Kendell Score is a 12. Past Medical History: COPD, Hypertension, Diabetes Mellitus, Hyperlipidemia, Sepsis, Aspiration Pneumonia, Acute Respiratory Failure, Sacral Decubitus Ulcer, Protein Calorie Malnutrition, Chronic Kidney Failure, Thrombocytopenia, and recurrent UTI. Recent Labs: WBC 14.3, RBC 2.90, hemoglobin 9.4, hematocrit 27.3, potassium 2.8, glucose 293, calcium 7.6, phosphorus 1.8, total bilirubin 1.3, BNP 190, albumin 1.2. Microbiology: MRSA screen results negative. Left culture results 2 in progress. Endotracheal culture results in progress. Urine culture results positive for yeast. Surgical specimen culture results positive for Escherichia coli (ESBL) and Klebsiella pneumoniae. Intrinsic factors that delay wound healing: COPD, diabetes mellitus, respiratory failure, protein calorie malnutrition chronic kidney failure, severe hypoalbuminemia. Extrinsic factors that delay wound healing: Decreased mobility. Wound Assessment: 1. Sacral area: Pressure ulcer, present on admission. Wound bed has 100% red tissue. No odor, no drainage. Periwound intact, surrounding tissue has erythema. Wound measures 1.4 cm x 1.0 cm. 2. Coccygeal area: Pressure Ulcer, present on admission. Wound has 100% red tissue. No odor, no drainage. Periwound intact, surrounding tissue has erythema. Wound measures 5.5 cm x 3.0 cm. 3. Coccygeal area, inferior to Wound 2: IAD with moisture associated skin damage, present on admission. Moisture associated ulcer has 100% red tissue. No odor, no drainage. Periwound intact surrounding tissue has erythema. Wound measures 2.0 cm x 1.0 cm. 4. Pauly-Anal area, Inferior to Anal Sphincter: IAD with moisture associated skin damage, present on admission. Moisture associated ulcer has 100% red tissue. No odor, no drainage. Periwound intact surrounding tissue has erythema. Wound measures 0.7 cm x 2.0 cm. 5. Pauly-Anal area, Superior and Right Lateral to Wound 4: IAD with moisture associated skin damage, present on admission. Moisture associated ulcer has 100% pink tissue. No odor, no drainage. Periwound intact surrounding tissue has erythema. Wound measures 1.0 cm x 1.0 cm. 6. Pauly-Anal area, Medial to Wound 5: IAD with moisture associated skin damage, present on admission. Moisture associated ulcer has 100% red tissue. No odor, no drainage. Periwound intact surrounding tissue has erythema. Wound measures 1.0 cm x 1.4 cm. Recommend: Cleanse wounds with normal saline. Apply Calmoseptine cream to wounds and pauly-wounds. Cover wounds with non-adhesive foam dressings. Secure with transparent dressings. Perform wound care daily, and as needed for dressing soiling or dislodgement. 7. Right Upper Pelvic Rim: Closed bulla with serous fluid. Recommend: Cover site with foam dressing. Monitor site for 24 hours. Contact wound care nurse if site opens or drains. 8. Central abdomen: Surgical incision (status post Exploratory Laparotomy Sigmoid Colon Resection with Colostomy by Dr. Scott on 06/08/19). Incisional site is approximated with 20 teto. Distal 1/4th of incision has moderate serosanguineous drainage. Incision measures 29.0 cm x 0.3 cm. Recommend: Cleanse wound with normal saline. Apply SurePrep to pauly-wound. Cover distal 1/4th of incision with alginate dressing if site is draining. Cover entire incision with ABD Pad and secure with transparent dressings. Perform wound care daily, and as needed for dressing soiling or dislodgement. 9. Right Proximal Lateral Thigh: Open bulla. Site has 100% pink tissue. No odor, no drainage. Periwound intact. Site measures 3.0 cm x 3.0 cm. Recommend: Cleanse wound with normal saline. Apply Calmoseptine cream to wound and pauly-wound. Cover with foam dressing. Perform wound care daily, and as needed for dressing soiling or dislodgement. Also recommend: Reposition patient [id number] only every 2 hours with pillow support and off-load pressure areas with pillows for pressure re-distribution. Offload, elevate and float bilateral heels with pillows. Perform skin care and monitor skin integrity Q shift. Use moisture barrier cream on buttocks and other moisture susceptible areas QID and as needed for soiling. Place patient on a low air-loss mattress.
--- NOTE | 2019-06-11 16:45 | NUR ---
Wound Care educated patient on purpose and procedure for wound care, wound care completed, patient tolerated well, no pain noted during or after wound care, see MST shift assessment for wound care.
--- NOTE | 2019-06-11 17:05 | NUR ---
Spoke with Surgeon spoke with Dr. Scott, informed him that patient is having small to moderate drainage, pink and red in color, from inferior portion of surgical incision to abdomen, per Dr. Scott he will be in to see the patient, no new orders. Addendum: 06/11/19 at 1928 by Kelsie Hunter RN change time of above note to 1904
[2019-06-11] MEDS ORDERED: NA PHOS 30 MM in NS 250 ML IV ONE (17:30)
--- NOTE | 2019-06-11 17:50 | NUR ---
Spoke with Physician spoke with Dr. Pedro Kim, informed him of critical lab wound culture positive for e-coli and ESBL, per Dr. Kmi patient is on appropriate antibiotic therapy and contact isolation, no new orders.
--- NOTE | 2019-06-11 19:27 | NUR ---
Closing Note bedside SBAR report given to receiving RN, patient resting in bed, no acute distress noted, respirations even and unlabored on 2L nasal cannula, educated patient on use of call light and asked to call for assistance, call light in reach, bed in low and locked position, bed alarm on, isolation precautions in place, care endorsed to night court magistrate RN.
--- NOTE | 2019-06-11 19:36 | NUR ---
OPENING NOTES Patient is resting, awake. 2L Nasal canula, no signs of acute respiratory distress. Restraints in place. Left upper arm PICC patent, dressings c/d/i. Colostomy bag intact, no drainage. SCD's in place. Call light within reach, bed alarm on, and bed at lowest position. Will continue to monitor.
[2019-06-11 20:00] VITALS: BP_SYST 118
[2019-06-11] MEDS ORDERED: TPN CENTRAL IV SCH ×9 (21:00)
[2019-06-11] MEDS ORDERED: POTASSIUM CHLORIDE IV SCH ×9 (21:00)
[2019-06-11] MEDS ORDERED: SODIUM CHLORIDE IV SCH ×9 (21:00)
[2019-06-11] MEDS ORDERED: [UNRECOGNIZED DRUG - OTHER] IV SCH ×9 (21:00)
[2019-06-11] MEDS: VANCOMYCIN HCL 750 MG in NS 250 ML IV SCH (21:52)
--- NOTE | 2019-06-11 22:45 | NUR ---
Called pharmacy to ask the best way for IVPB medications to be given. Patient is resting, no signs of acute respiratory distress. Medications provided, patient tolerating well. Restraints in place, and when restraints are released, patient still tries to look for tubings to tug. Call light within reach, bed alarm on, bed at lowest position. Will continue to monitor.
[2019-06-12] VITALS (10 sets, daily range): BP systolic 78–148
--- NOTE | 2019-06-12 00:26 | NUR ---
Patient is resting, no signs of acute respiratory distress. Will continue to monitor.
--- NOTE | 2019-06-12 02:49 | NUR ---
Patient is resting, no signs of acute respiratory distress. Medications provided, patient tolerating well. Restraints in place, call light within reach, bed alarm on, bed at lowest position. Will continue to monitor.
--- NOTE | 2019-06-12 04:12 | NUR ---
Patient is resting, eyes open, no signs of acute respiratory distress, 2L Nasal canula. Medications provided, patient tolerating well. Restraints in place, call light within reach, bed alarm on, bed at lowest position. Will continue to monitor.
[2019-06-12] MEDS: metroNIDAZOLE 500 mg/NS 100 ML IV SCH ×2 (06:01→15:02)
[2019-06-12] MEDS: MEROPENEM 500 MG in NS 50 ML IV SCH ×3 (06:01→23:36)
[2019-06-12] MEDS: INSULIN REGULAR, HUMAN 100 UNITS/ML, 10 ML VIAL (humuLIN R) SUBCUT PRN ×3 (06:21→23:41)
--- NOTE | 2019-06-12 07:26 | NUR ---
CLOSING NOTES Patient is resting, awake. Restraints in place. Left upper arm PICC patent, dressings c/d/i. Colostomy bag intact, no drainage. SCD's in place. 2L Nasal canula, no signs of acute respiratory distress. Wound care performed per order. Call light within reach, bed alarm on, and bed at lowest position. HOB raised. Will endorse care to oncoming shift.
--- NOTE | 2019-06-12 07:35 | NUR ---
opening note patient is resting in bed, assessment completed, educated software controls engineer light system and plan of care, patient nodded head and said "okay", left upper arm PICC line dressing intact with TPN running 50ml/hr, and IV antibiotic running, abdominal dressing intact, cortes in place, patient has bilateral soft wrist restraints on, no signs of distress, on 2L nasal cannula fall/safety and contact precautions in place.
[2019-06-12] MEDS: BALSAM PERU/CASTOR OIL 60 GM OINT...G. TP SCH (08:04)
[2019-06-12 08:30] LABS: BASOPHILS % (AUTO) 0.2 % (0.0-2.0); LYMPHOCYTES # (AUTO) 0.2 K/uL (1.0-5.5); LYMPHOCYTES % (AUTO) 1.3 % (20.5-51.5); MEAN CORPUSCULAR HEMOGLOBIN 32 pg (27-31); MEAN CORPUSCULAR HGB CONC 33 % (32-36); MEAN CORPUSCULAR VOLUME 95 fL (79.0-98.0); MONOCYTES # (AUTO) 0.2 K/uL (0.0-1.0); MONOCYTES % (AUTO) 1.7 % (1.7-9.3); NEUTROPHILS # (AUTO) 14.1 K/uL (1.8-7.7); NEUTROPHILS % (AUTO) 96.8 % (40.0-70.0); PLATELET COUNT (AUTO) 194 K/uL (130-430); RED BLOOD CELL COUNT(AUTO) 3.48 MIL/uL (4.2-6.2); WHITE BLOOD COUNT (AUTO) 14.6 K/uL (4.8-10.8)
[2019-06-12] MEDS: PREDNISONE 10 MG TABLET PO SCH (08:46)
[2019-06-12] MEDS: FLUCONAZOLE 100 MG TABLET (DIFLUCAN) PO SCH (08:46)
[2019-06-12] MEDS: ENOXAPARIN SODIUM 40 MG/0.4 ML SYRINGE SUBCUT SCH (08:47)
[2019-06-12 09:16] LABS: ANION GAP 5 (5-15); CALCIUM 7.4 mg/dL (8.4-11.0); CHLORIDE 100 mmol/L (98-107); CREATININE 0.76 mg/dL (0.55-1.30); GLUCOSE 346 mg/dL (70-99); PHOSPHORUS 2.4 mg/dL (2.7-4.5); SODIUM SERUM 139 mmol/L (136-145); UREA NITROGEN, BLOOD 16 mg/dL (8-21)
[2019-06-12 09:19] LABS: POTASSIUM 2.6 mmol/L (3.5-5.1)
[2019-06-12] MEDS ORDERED: POTASSIUM CHLORIDE 40 MEQ in NS 250 ML IV ONE (09:30)
--- NOTE | 2019-06-12 10:54 | NUR ---
k-rider patient is resting in bed, educated on medication use and side effects, patient nodded head and said "okay", patient tolerating well, no other needs at this time, Dr Kim was paged in regards to the patient's elevated heart rate, fall/safety and contact precautions in place.
--- NOTE | 2019-06-12 11:13 | NUR ---
Discharge Planning: DCP faxed pt referral to [facility] [place] (f [phone] p [phone]) DCP to follow up Addendum: 06/12/19 at 1349 by Darby Menezes DP Per [facility] [place] (f [phone] p [phone]) they have to get auth.
[2019-06-12] MEDS ORDERED: DILTIAZEM HCL 25 MG/5 ML VIAL IVP ONE ×2 (11:30→14:45)
[2019-06-12] MEDS ORDERED: DILTIAZEM HCL 25 MG/5 ML VIAL IVP PRN (11:45)
--- NOTE | 2019-06-12 12:05 | NUR ---
makenna and lee patient resting in bed, accuchek done and sliding scale needed per MD order, Dr Kim was at the nurses' station and gave me new orders, educated patient on medication use and side effects, patient nodded head and said "okay" to me, patient tolerated well, no other needs at this time, fall/safety and contact precautions in place.
[2019-06-12] MEDS: ONDANSETRON HCL 4 MG/2 ML VIAL IVP PRN (13:33)
[2019-06-12] MEDS ORDERED: methylPREDNISolone SOD SUCC/PF 62.5 MG/ML VIAL IVP ONE (14:00)
[2019-06-12] MEDS ORDERED: FUROSEMIDE 20 MG/2 ML VIAL IVP ONE (14:00)
[2019-06-12] MEDS ORDERED: AMIODARONE HCL 200 MG TABLET PO ONE (15:00)
--- NOTE | 2019-06-12 15:00 | NUR ---
called Dr Kim in regards to the patient's elevated heart rate and that it is still not time to give the prn cardizem again, new orders were received, patient is spitting frothy brown sputum, suctioning was provided, prn zofran was given earlier, patient tolerated well.
[2019-06-12 16:06] LABS: CREATININE, URINE 14.7 mg/dL; MICROALBUMIN URINE RANDOM 25.3 ug/ml (NOT ESTABLISHED); MICROALBUMIN/CREAT RATIO, UR 172.1 MG/G CRE (0.0-30.0)
--- NOTE | 2019-06-12 16:25 | NUR ---
Dr Weir in nurses' station updated her on patient status, patient os spitting up frothy brown sputum, to see patient.
[2019-06-12] MEDS ORDERED: DILTIAZEM HCL 125 MG in D5W 100 ML IV SCH (16:45)
[2019-06-12] MEDS ORDERED: IPRATROPIUM/ALBUTEROL SULFATE 3 ML AMPUL.NEB (DUONEB) INH ONE (17:00)
[2019-06-12] MEDS: methylPREDNISolone SOD SUCC 40 MG/ML VIAL IVP ONE ×2 (17:37→17:52)
[2019-06-12] MEDS ORDERED: INSULIN REGULAR, HUMAN 100 UNITS/ML, 10 ML VIAL SUBCUT ONE (18:00)
[2019-06-12] MEDS ORDERED: INSULIN GLARGINE 100 UNITS/ML 10 ML VIAL SUBCUT ONE (18:15)
--- NOTE | 2019-06-12 19:15 | NUR ---
CLOSING NOTE PATIENT IS RESTING IN BED, PATIENT IS ON 2L NASAL CANNULA, I TALKED TO DR BURDICK EARLIER ABOUT THE PATIENT'S ELEVATED HEART RATE AND I RECEIVED AN ORDER FOR CARDIZEM DRIP 10MG/HR, I TALKED TO DR PIERSON ABOUT THE PATIENT'S ELEVATED BLOOD SUGAR AND I RECEIVED ONE TIME DOSES FOR INSULIN COVERAGE, I SPOKE TO DR MCGILL IN REGARDS TO THE PATIENTS CT CHEST ORDER AND THAT THE TECHS SAID THAT THEY CANNOT TAKE THE PATIENT UNTIL SHE IS STABLE AND NOT THROWING UP, DR MCGILL SAID THAT WHEN SHE IS STABLE TO DO THAT AN RN HAS TO ACCOMPANY HER, PATIENT ON TPN 50ML/HR, GRAHAM AND COLOSTOMY BAG IN PLACE, FALL/SAFETY AND CONTACT PRECAUTIONS IN PLACE.
--- NOTE | 2019-06-12 19:50 | NUR ---
Transfer to ICU Pt transferred to ICU post Code blue. Pt remains unresponsive. Uncontrolled A-fib on the monitor. Pt intubated and being ventilated. O2 saturations in the high 90s. BP low (60/30s). IV site intact. Consult doctors being paged for orders. Will continue to monitor.
[2019-06-12] MEDS ORDERED: NOREPINEPHRINE BITARTRATE 4 MG in NS 246 ML IV PRN (20:00)
--- NOTE | 2019-06-12 20:00 | NUR ---
Dr. Veronica at bedside examining Pt post code. Will check for any new orders.
[2019-06-12] MEDS ORDERED: TPN CENTRAL IV SCH ×9 (21:00)
[2019-06-12] MEDS ORDERED: SODIUM CHLORIDE IV SCH ×9 (21:00)
[2019-06-12] MEDS ORDERED: POTASSIUM CHLORIDE IV SCH ×9 (21:00)
[2019-06-12] MEDS: AMIODARONE HCL 200 MG TABLET PO SCH (21:00)
[2019-06-12] MEDS ORDERED: [UNRECOGNIZED DRUG - OTHER] IV SCH ×9 (21:00)
--- NOTE | 2019-06-12 21:15 | NUR ---
CONTACTED DR MCGILL, UPDATED ON PT CONDITION, S/P CODE BLUE.ABG RESULTS GIVEN.AWARE THAT PT HAS COFFEE GROUND EMESIS.ORDERS RECEIVED.
[2019-06-12] MEDS: VANCOMYCIN HCL 750 MG in NS 250 ML IV SCH (21:20)
[2019-06-12] MEDS ORDERED: NOREPINEPHRINE 4 MG/4 ML VIAL IV ONE (21:21)
[2019-06-12] MEDS ORDERED: NS 500 ML IV ONE (21:30)
[2019-06-12] MEDS ORDERED: ALBUMIN HUMAN 25% 100 ML IV ONE ×2 (21:33→22:00)
--- NOTE | 2019-06-12 22:15 | NUR ---
DR PRO CALLED AND UPDATED ON PT CONDITION.SAID HE ORDERED CT OF ABDOMEN.MADE AWARE THAT PT ON LEVOPHED DRIP AT 16 MCG/MIN AT THIS TIME AND VERY UNSTABLE TO GO TO XRAY AND HE SAID, TO DO IT WHEN PT IS STABLE.
[2019-06-12] MEDS: methylPREDNISolone SOD SUCC 40 MG/ML VIAL IVP SCH (22:35)
[2019-06-13] VITALS (34 sets, daily range): BP systolic 87–198
[2019-06-13] MEDS ORDERED: INSULIN REGULAR, HUMAN 100 UNITS/ML, 10 ML VIAL SUBCUT SCH
[2019-06-13] MEDS: metroNIDAZOLE 500 mg/NS 100 ML IV SCH ×4 (00:22→22:44)
--- NOTE | 2019-06-13 00:34 | NUR ---
RN Rounds Pt remains unresponsive. SR on the monitor w/ occasional PVCs noted. Pt vent settings: AC 16, TV 450, FIO2 75%, saturating 100%. Pt JODI PICC line in place running Levophed @6mcg/kg/min. Pt has TPN and ABX running as well.. IV site C/D/I. NGT set to low intermittent suction. Mcgovern catheter draining adequate amounts of urine. Pt has colostomy noted, no output. VSS. Will continue to monitor.
[2019-06-13] MEDS: IPRATROPIUM/ALBUTEROL SULFATE 3 ML AMPUL.NEB (DUONEB) INH SCH ×4 (01:19→19:40)
--- NOTE | 2019-06-13 02:15 | NUR ---
RN Rounds Pt remains unresponsive. Not responding to pain stimuli. VSS however, Pt saturating in the 90s, and BP remains stable. Levophed currently infusing but being titrated down. Good urine output from cortes noted, nothing from colostomy. Will continue to monitor.
--- NOTE | 2019-06-13 05:00 | NUR ---
RN Rounds Pt remains unresponsive, but PERRLA achieved. No orientation noted however, but still unable to respond to painful stimuli. VSS. Levophed being titrated down. FIO2 being titrated down on vent settings. Pt tolerating well. Will continue to monitor.
[2019-06-13] MEDS: MEROPENEM 500 MG in NS 50 ML IV SCH ×3 (05:22→21:10)
[2019-06-13] MEDS: INSULIN REGULAR, HUMAN 100 UNITS/ML, 10 ML VIAL (humuLIN R) SUBCUT PRN ×5 (05:24→23:45)
[2019-06-13 05:44] LABS: BASOPHILS # (AUTO) 0.1 K/uL (0.0-0.2); BASOPHILS % (AUTO) 0.4 % (0.0-2.0); HEMATOCRIT 25.4 % (36-48); HEMOGLOBIN 8.4 g/dL (12.0-16.0); LYMPHOCYTES # (AUTO) 0.2 K/uL (1.0-5.5); LYMPHOCYTES % (AUTO) 0.9 % (20.5-51.5); MEAN CORPUSCULAR HEMOGLOBIN 32 pg (27-31); MEAN CORPUSCULAR HGB CONC 33 % (32-36); MEAN CORPUSCULAR VOLUME 96 fL (79.0-98.0); MONOCYTES # (AUTO) 0.4 K/uL (0.0-1.0); NEUTROPHILS # (AUTO) 18.7 K/uL (1.8-7.7); NEUTROPHILS % (AUTO) 96.7 % (40.0-70.0); PLATELET COUNT (AUTO) 125 K/uL (130-430); RED BLOOD CELL COUNT(AUTO) 2.66 MIL/uL (4.2-6.2); RED CELL DISTRIBUTION WIDTH 14.8 % (9.0-15.0); WHITE BLOOD COUNT (AUTO) 19.3 K/uL (4.8-10.8)
[2019-06-13] MEDS: methylPREDNISolone SOD SUCC 40 MG/ML VIAL IVP SCH ×2 (05:49→18:01)
--- NOTE | 2019-06-13 06:20 | NUR ---
Called Dr. Veronica called and made aware of Pt critical lab values. New orders received, will carry out as ordered.
[2019-06-13] MEDS ORDERED: D5W 1,000 ML IV PRN (06:22)
[2019-06-13] MEDS ORDERED: DEXTROSE 50% JECT 50 ML DISP.SYRIN IVP PRN ×2 (06:30→07:00)
[2019-06-13] MEDS ORDERED: GLUCOSE 15 GM GEL (in 37.5 GM TUBE) PO PRN (06:30)
--- NOTE | 2019-06-13 06:43 | NUR ---
Closing Note Pt in bed, remains unresponsive. PERRLA noted, but no responsive to pain stimuli. Pt VSS. SR on the monitor, Vent settings: AC 16, TV 450, FIO2 40%. Pt has JODI PICC line in place, running TPN and ABX. IV site C/D/I. Levophed turned off @0615. Urine draining from cortes catheter. Bed locked in lowest position, call light in reach, and safety precautions in place. Will endorse to oncoming RN.
[2019-06-13] MEDS ORDERED: INSULIN REGULAR, HUMAN 100 UNITS/ML, 10 ML VIAL SUBCUT ONE (07:00)
--- NOTE | 2019-06-13 07:15 | NUR ---
Opening Note Patient received unresponsive to painful stimuli. Patient on residential monitor with NSR. Patient intubated and on ventilator with settings of AC 16, tidal volume 450, FiO2 40%. No signs of distress noted. Patient has a left upper arm PICC infusing TPN @ 50 ml/hr. Patient has a left NGT connected to low intermittent suction draining coffee-ground color drainage. Patient has a cortes in place draining yellow urine. Skin non-intact. Safety precautions enforced.
--- NOTE | 2019-06-13 07:20 | NUR ---
Endorsement Report given to oncoming RN at bedside via SBAR approach.
[2019-06-13 07:46] LABS: ALANINE AMINOTRANSFERASE 461 U/L (12-78); ALBUMIN 1.9 g/dL (3.4-4.8); ANION GAP 9 (5-15); ASPARTATE AMINOTRANSFERASE 1274 U/L (10-37); CALCIUM 7.5 mg/dL (8.4-11.0); CHLORIDE 104 mmol/L (98-107); CREATININE 1.18 mg/dL (0.55-1.30); POTASSIUM 3.3 mmol/L (3.5-5.1); SODIUM SERUM 142 mmol/L (136-145); TOTAL BILIRUBIN 1.5 mg/dL (0.0-1.0); UREA NITROGEN, BLOOD 31 mg/dL (8-21)
[2019-06-13 07:52] LABS: GLUCOSE 566 mg/dL (70-99)
--- NOTE | 2019-06-13 08:16 | NUR ---
Critical Value Reporting Called Dr Weir exchange @ 8032 for critical AGB of 7.583 pH. Female cat operator hung up before giving name.
--- NOTE | 2019-06-13 08:30 | NUR ---
Call back Dr Weir called back @ 0193. Ordered AC vent rate to [address] request order with RT for service.
--- NOTE | 2019-06-13 08:40 | NUR ---
RT NOTES Vent settings to AC [address] Weir's order. Will monitor pt.
[2019-06-13] MEDS: VANCOMYCIN HCL 750 MG in NS 250 ML IV SCH ×2 (08:41→20:24)
[2019-06-13] MEDS: FLUCONAZOLE 100 mg/ NS 50 ML IV SCH (08:42)
[2019-06-13] MEDS: AMIODARONE HCL 200 MG TABLET PO SCH ×2 (08:43→20:25)
[2019-06-13] MEDS: INSULIN GLARGINE 100 UNITS/ML 10 ML VIAL SUBCUT SCH ×2 (08:48→20:20)
[2019-06-13] MEDS: ENOXAPARIN SODIUM 40 MG/0.4 ML SYRINGE SUBCUT SCH (08:49)
[2019-06-13] MEDS ORDERED: INSULIN GLARGINE 100 UNITS/ML 10 ML VIAL SUBCUT SCH (09:00)
--- NOTE | 2019-06-13 09:05 | NUR ---
MD Rounds Dr. Josafat Kim to see patient. No new orders received.
--- NOTE | 2019-06-13 09:13 | NUR ---
MD Rounds Dr. Daniel Kim to see patient. No new orders received.
[2019-06-13] MEDS ORDERED: 0.45% NACL 1,000 ML IV SCH (10:45)
[2019-06-13] MEDS ORDERED: POTASSIUM CHLORIDE 40 MEQ in 0.45% NS 250 ML IV ONE (10:45)
--- NOTE | 2019-06-13 10:45 | NUR ---
MD Rounds Dr. Weir to see patient. New orders received and carried out.
--- NOTE | 2019-06-13 10:53 | NUR ---
MD- Consult Called Dr. Alexander for consult, spoke to Heather.
--- NOTE | 2019-06-13 11:02 | NUR ---
CT Pt connected to transport monitor, RT at bedside. Pt off unit to CT
[2019-06-13] MEDS ORDERED: IOHEXOL 350 mgI/mL, 150 ML INFUS..BTL IV ONE (11:08)
--- NOTE | 2019-06-13 11:22 | NUR ---
RT NOTES Transported pt to CT & from w/ RN. Bagged pt w/ 100% O2 via ambubag to ETT without incidents. ETT remained secure/patent. Placed pt back on vent w/ same settings once in the unit.
--- NOTE | 2019-06-13 11:25 | NUR ---
CT Pt returned to unit from CT. Pt reconnected to in room monitor.
--- NOTE | 2019-06-13 13:30 | NUR ---
EEG applied computer science professor arrived @ 1330 to assess Pt.
--- NOTE | 2019-06-13 13:56 | NUR ---
Sheet Metal Welder: try to meet with family to offer supportive services SUPERVISOR SPECIALTY PLANT went to ICU and spoke to Alyssa Castillo who stated pts. family wants to keep her full code until one of the sons comes back into the country in 2 days. Family also wanted to wait for Neuro consult and also results of EEg. RN shared with SUPERVISOR SPECIALTY PLANT that pt. has some brain waves, but is near brain . SUPERVISOR SPECIALTY PLANT will leave a "Follow-up " note for SUPERVISOR SPECIALTY PLANT tomorrow to offer supportive services to family.
--- NOTE | 2019-06-13 15:13 | NUR ---
MD Rounds Dr Alexander arrived @ 1200 to assess Pt. No new orders given.
--- NOTE | 2019-06-13 16:09 | NUR ---
Wind Field Service Manageredgardo Ferrara (Wind Field Service Manager) came to assess TPN settings @ 1600
--- NOTE | 2019-06-13 16:14 | NUR ---
Nutrition F/U RD reviewed pt's current EMR record including diet Hx, physician notes, nursing notes, pertinent labs/meds/procedures, care trends, and care activity. Admitting Diagnosis Sepsis, acute abd Medical History Comment: PMH: COPD, HTN, DM, HLD, sepsis, aspiration pneumonia, acute respiratory failure, sacral decubitus ulcer, protein calorie malnutrition, CKD, thrombocytopenia, recurrent UTI per physician notes Pt also found w/ peritonitis per physician notes Current Diet Order: NPO x0 days Current Nutrition Support: TPN D40%, AA10% at 50 ml/hr via central line Subjective Info: Pt was seen resting in bed, intubated on vent, no family present. TPN was infusing as per pharmacy/physician order. Lipids remain inappropriate at this time. EEG was completed earlier today. RN reported that pt is nearly brain-. Awaiting neurologist consult. Pt remains full code per EMR records. NEW Estimated Energy Expenditure (kcals/day) 1338 kcal/day (PSU 2003b for critical illness, intubation) Estimated Protein Required (g/day) 59-98 gm/day (1.2-2 gm/kg Adj IBW for CKD, surgical healing, wound healing, sepsis) Estimated Fluid Required (l/day) Per physician d/t CKD Problem/Etiology/Signs/Symptoms Increased nutritional needs related to metabolic demands as evidenced by estimated nutritional requirements for surgical healing and sepsis. *ongoing Expected Outcomes/Goals - Monitor provision of nutrition support w/ goal of pt meeting at least 50% of estimated nutritional needs, labs trending WNL, normal GI function, and skin integrity/wt maintenance Dietitian Recommendations * Recommend continuing TPN D40%, AA10% at 50 ml/hr via central line Provides: 1056 kcal/day, 60 gm protein/day, 1200 ml total volume/day, and GIR: 2.7 gm CHO/kg/min Meets: 79% of estimated caloric needs and 102% of lower end of estimated protein needs Follow Up High Risk: F/U in 2-3 days
--- NOTE | 2019-06-13 16:24 | NUR ---
Dietitian Recommendations * Recommend continuing TPN D40%, AA10% at 50 ml/hr via central line Provides: 1056 kcal/day, 60 gm protein/day, 1200 ml total volume/day, and GIR: 2.7 gm CHO/kg/min Meets: 79% of estimated caloric needs and 102% of lower end of estimated protein needs LP, RD Please refer to Nutrition F/U for details.
[2019-06-13] MEDS: BALSAM PERU/CASTOR OIL 60 GM OINT...G. TP SCH (17:00)
--- NOTE | 2019-06-13 17:00 | NUR ---
PICC line Changed PICC line dressing @ 1700. Sterile technique.
--- NOTE | 2019-06-13 17:30 | NUR ---
Wound care Wound care performed @ 1730 on ABD incision, coccyx, sacral, and right proximal lateral. Wound be cleaned with Normal Saline. Applied a coat of Vanalex, Calmoseptine, and applied foam butterfly dressing on coccyx. Applied Alginate, absorbant pad and Tegaderm over ABD incision Pt tolerated wound care.
--- NOTE | 2019-06-13 17:50 | NUR ---
MD Rounds Dr Veronica came to assess Pt @ 6014. Ordered Protonix
[2019-06-13] MEDS ORDERED: PANTOPRAZOLE SODIUM 40 MG/VIAL (PROTONIX) IVP SCH (18:15)
[2019-06-13] MEDS ORDERED: NA PHOS 30 MM in NS 250 ML IV ONE (18:45)
--- NOTE | 2019-06-13 19:00 | NUR ---
Closing Note Endorse to oncoming RN. Pt in bed, remains unresponsive. PERRLA noted, but no responsive to pain stimuli. SR Vent settings: AC 12, TV 450, FIO2 40%. Pt has JODI PICC line in place, running TPN and NS @ 30cc. IV site C/D/I. Urine draining from cortes catheter. Bed locked in lowest position, call light in reach, and safety precautions in place. .
--- NOTE | 2019-06-13 19:15 | NUR ---
PM ASSESSMENT Pt in bed with eyes closed resting comfortably, no signs of acute distress or discomfort noted. VSS with SR seen on the monitor. Pt on vent with vent settings: AC 12, TV 450 and FiO2 40%. Pt tolerating vent settings well with O2 sats @ 98% and even and unlabored breathing. Pt has JODI picc infusing 1/2 ns @ 30 cc/hr and TPN @ 50 cc/hr. PICC dressing c/d/i. NG tube noted to pt's L nare connected to low int suction. Mcgovern cath noted draining urine to gravity. Colostomy noted. SCD's noted to bilateral lower extremities. Bed is locked and in lowest position, call light within reach, will cont to monitor pt.
[2019-06-13] MEDS: PANTOPRAZOLE SODIUM 40 MG/VIAL (PROTONIX) IVP SCH (20:23)
[2019-06-13] MEDS: FAMOTIDINE PF 20 MG/2 ML VIAL IVP SCH (20:24)
[2019-06-13] MEDS ORDERED: [UNRECOGNIZED DRUG - OTHER] IV SCH ×10 (21:00)
[2019-06-13] MEDS ORDERED: TPN CENTRAL IV SCH ×10 (21:00)
[2019-06-13] MEDS ORDERED: SODIUM CHLORIDE IV SCH ×10 (21:00)
[2019-06-13] MEDS ORDERED: POTASSIUM CHLORIDE IV SCH ×10 (21:00)
--- NOTE | 2019-06-13 22:00 | NUR ---
Pt in bed with eyes closed resting comfortably, no signs of acute distress or discomfort noted.
--- NOTE | 2019-06-13 23:45 | NUR ---
Pt's blood sugar [address] Veronica called and made aware. New orders received, will carry out orders.
[2019-06-14] VITALS (16 sets, daily range): BP systolic 95–148
[2019-06-14] MEDS ORDERED: INSULIN REGULAR, HUMAN 100 UNITS/ML, 10 ML VIAL SUBCUT ONE
[2019-06-14] MEDS: IPRATROPIUM/ALBUTEROL SULFATE 3 ML AMPUL.NEB (DUONEB) INH SCH ×2 (00:55→07:37)
--- NOTE | 2019-06-14 02:30 | NUR ---
CHG CHG bath given to pt at this time. Pt tolerated well, will cont to monitor.
--- NOTE | 2019-06-14 04:00 | NUR ---
Pt still unresponsive at this time. VSS with O2 saturations @ 99% and stable BP. Pt repositioned, oral care given at this time. Will cont to monitor pt.
[2019-06-14] MEDS: MEROPENEM 500 MG in NS 50 ML IV SCH (05:02)
[2019-06-14 05:48] LABS: BASOPHILS # (AUTO) 0.3 K/uL (0.0-0.2); BASOPHILS % (AUTO) 1.4 % (0.0-2.0); HEMATOCRIT 25.1 % (36-48); HEMOGLOBIN 8.4 g/dL (12.0-16.0); LYMPHOCYTES # (AUTO) 0.2 K/uL (1.0-5.5); MEAN CORPUSCULAR HEMOGLOBIN 32 pg (27-31); MEAN CORPUSCULAR HGB CONC 33 % (32-36); MEAN CORPUSCULAR VOLUME 95 fL (79.0-98.0); MONOCYTES # (AUTO) 0.8 K/uL (0.0-1.0); MONOCYTES % (AUTO) 3.8 % (1.7-9.3); NEUTROPHILS # (AUTO) 20.8 K/uL (1.8-7.7); NEUTROPHILS % (AUTO) 93.8 % (40.0-70.0); PLATELET COUNT (AUTO) 152 K/uL (130-430); RED BLOOD CELL COUNT(AUTO) 2.65 MIL/uL (4.2-6.2); RED CELL DISTRIBUTION WIDTH 15.1 % (9.0-15.0); WHITE BLOOD COUNT (AUTO) 22.1 K/uL (4.8-10.8)
[2019-06-14] MEDS: metroNIDAZOLE 500 mg/NS 100 ML IV SCH (05:57)
[2019-06-14] MEDS: INSULIN REGULAR, HUMAN 100 UNITS/ML, 10 ML VIAL (humuLIN R) SUBCUT PRN ×2 (05:59→12:08)
[2019-06-14] MEDS: methylPREDNISolone SOD SUCC 40 MG/ML VIAL IVP SCH (06:03)
[2019-06-14 06:11] LABS: ALANINE AMINOTRANSFERASE 380 U/L (12-78); ALBUMIN 1.6 g/dL (3.4-4.8); ANION GAP 4 (5-15); ASPARTATE AMINOTRANSFERASE 288 U/L (10-37); CHLORIDE 109 mmol/L (98-107); CREATININE 1.31 mg/dL (0.55-1.30); PHOSPHORUS 4.3 mg/dL (2.7-4.5); POTASSIUM 3.2 mmol/L (3.5-5.1); SODIUM SERUM 141 mmol/L (136-145); TOTAL BILIRUBIN 1.3 mg/dL (0.0-1.0); TRIGLYCERIDES 82 mg/dL (30-150); UREA NITROGEN, BLOOD 38 mg/dL (8-21)
[2019-06-14 06:13] LABS: CALCIUM 7.3 mg/dL (8.4-11.0)
[2019-06-14 06:14] LABS: GLUCOSE 429 mg/dL (70-99)
--- NOTE | 2019-06-14 07:10 | NUR ---
ENDORSEMENT Report given to oncoming RN using SBAR format and pt care was endorsed, no signs of acute distress or discomfort noted.
--- NOTE | 2019-06-14 07:15 | NUR ---
Opening Note Patient received unresponsive to painful stimuli @ this time. Patient on surveillance system monitor with sinus tachycardia. Patient intubated and on a ventilator with settings of AC 12, tidal volume 450, FiO2 40%. Patient has a left upper arm PICC line infusing 1/2 NS @ 30 ml/hr and TPN @ 50 ml/hr. Patient has a left nare NGT connected to low intermittent suction. Patient has a cortes in place draining rosette urine. Safety precautions enforced.
--- NOTE | 2019-06-14 07:57 | NUR ---
MD Rounds Dr. Ansari @ bedside to see patient. No new orders received.
--- NOTE | 2019-06-14 08:15 | NUR ---
RN Update Patient's family requesting for change of code status. Son/family members wanting to speak with MD.
[2019-06-14] MEDS: PANTOPRAZOLE SODIUM 40 MG/VIAL (PROTONIX) IVP SCH (08:21)
[2019-06-14] MEDS: FLUCONAZOLE 100 mg/ NS 50 ML IV SCH (08:21)
[2019-06-14] MEDS: VANCOMYCIN HCL 750 MG in NS 250 ML IV SCH (08:21)
[2019-06-14] MEDS: FAMOTIDINE PF 20 MG/2 ML VIAL IVP SCH (08:22)
[2019-06-14] MEDS: AMIODARONE HCL 200 MG TABLET PO SCH (08:24)
[2019-06-14] MEDS: INSULIN GLARGINE 100 UNITS/ML 10 ML VIAL SUBCUT SCH (08:25)
--- NOTE | 2019-06-14 08:52 | NUR ---
RN Update Family @ bedside performing last rights ritual for patient.
--- NOTE | 2019-06-14 09:04 | NUR ---
Paged Dr. Weir, spoke with exchange.
--- NOTE | 2019-06-14 09:16 | NUR ---
Paged Dr. Veronica, spoke with exchange.
--- NOTE | 2019-06-14 09:43 | NUR ---
Paged Dr. Alexander, spoke with exchange
--- NOTE | 2019-06-14 12:15 | NUR ---
Family And Consumer Science Professor Note AGRICULTURAL ENGINEERING TECHNICIAN spoke with ICU nurses. Patient's family has stated they would like to change patient's code status to DNR and possibly remove life support. They are waiting to speak with one of patient's doctors, none of whom have been able to come in this morning. Dr Alexander is expected soon. Met with patient's family in the ICU waiting room. There were several family members present. Most speak Cantonese. One of the granddaughters translated. They are in agreement that they would not want CPR conducted on patient. They have mortuary arrangements made. Offered support. Will continue to follow.
--- NOTE | 2019-06-14 12:16 | NUR ---
MD Rounds Dr. Alexander @ bedside for assessment. MD spoke with family regarding patient's condition and EEG results. TECHNICAL INSPECTOR with MD to speak with family.
--- NOTE | 2019-06-14 12:20 | NUR ---
MD Rounds Dr. Pierre @ bedside to see patient. No new orders received.
--- NOTE | 2019-06-14 12:35 | NUR ---
RN Update Dr. Alexander and AVIATION ELECTRONICS TECHNICIAN speaking with family regarding patient status. Patient's family agreed on terminally extubating and stopping all medications today. All family members verbalized agreement.
--- NOTE | 2019-06-14 12:47 | NUR ---
Called Dr. Veronica and informed him about Dr. Alexander's meeting with family and social work and family is agreeable to terminally extubate patient and stop all medications. Dr. Veronica states agreement and no new orders at this time.
--- NOTE | 2019-06-14 13:00 | NUR ---
12[address] pt term[address] per dr. ledbetter. Addendum: 06/14/19 at 1301 by Lana Ramos RT Amended: Links added.
[2019-06-14] MEDS: MORPHINE 4 MG/ML INJ. SYRINGE IVP PRN (13:17)
--- NOTE | 2019-06-14 13:25 | NUR ---
Late note due to patient/family care OPAL attended family conference with Dr Alexander in the ICU waiting room.Family speaks [place] and wanted patient's granddaughter to translate. Dr Alexander explained to the multiple family members present that patient's upper brain functions had ceased and the brain stem was not functioning well. He recommended removing the vent and only comfort care for patient. All family members present were allowed to ask questions and stated they were in agreement with removing patient from the ventilator. They stated that all family members who wished to see patient were present and that the extubation could proceed. The order for terminal extubation was given by Dr Alexander. Dr Veronica was called and agreed. The family was provided the opportunity to be with patient prior to extubation. Patient was extubated and, once prepared, family members who wished to stay with patient were given that chance. [facility]. Patient remains alive at this time. Family appears to be coping well and supportive of one another. Will remain available. Addendum: 06/14/19 at 1504 by Mercedes Luke LCSW Visited with family again to provide support. Provided off work/school letters for family.
[2019-06-14] MEDS ORDERED: MORPHINE 2 MG/ML INJ. SYRINGE IVP PRN (14:00)
[2019-06-14] MEDS ORDERED: LORazepam 2 MG/ML VIAL IVP PRN (14:00)
--- NOTE | 2019-06-14 14:00 | NUR ---
MD Rounds Dr. Weir to see patient. New orders received and carried out.
[2019-06-14] MEDS ORDERED: LORazepam 2 MG/ML VIAL ONE (14:17)
--- NOTE | 2019-06-14 15:15 | NUR ---
Patient unresponsive to any form of stimuli. No respirations, no peripheral pulses noted. No heart sounds and breath sounds heard upon auscultation. Pupils fixed and dilated. Asystole on the monitor. Patient is DNR/comfort measures only. Patient confirmed by JODY Hancock and myself @ [id number]. Family aware of patient .
--- NOTE | 2019-06-14 15:43 | NUR ---
Notified attending and consult MDs regarding patient's expiration.
--- NOTE | 2019-06-14 16:30 | NUR ---
[facility] returned call and updated about pt. Reference number [id number]
--- NOTE | 2019-06-14 16:50 | NUR ---
Called Arabella at [facility] regarding machine pecan picker time for pt, states estimated time of machine pecan picker at [phone].
[2019-06-14] MEDS ORDERED: TPN CENTRAL IV SCH ×11 (21:00)
[2019-06-14] MEDS ORDERED: SODIUM CHLORIDE IV SCH ×11 (21:00)
[2019-06-14] MEDS ORDERED: POTASSIUM CHLORIDE IV SCH ×11 (21:00)
[2019-06-14] MEDS ORDERED: [UNRECOGNIZED DRUG - OTHER] IV SCH ×11 (21:00)
[2019-06-15] MEDS ORDERED: VANCOMYCIN HCL 750 MG in NS 250 ML IV SCH (09:00)
== END 2019-06-14 19:19 | disposition expired | DRG 853 ==
LOC: SMU 16:44 → SIC 21:10 → STU 06-10 20:37 → SIC 06-12 20:55
PROVIDERS: ADMIT Internal Medicine; ATTEND Internal Medicine
PROC: 0DTN0ZZ Resection of Sigmoid Colon, Open Approach (ICD-10-PCS; 2019-06-08)
PROC: 0D1N0Z4 Bypass Sigmoid Colon to Cutaneous, Open Approach (ICD-10-PCS; 2019-06-08)
PROC: 5A1935Z Respiratory Ventilation, Less than 24 Consecutive Hours (ICD-10-PCS; principal; 2019-06-08 15:00)
PROC: 30233N1 Transfusion of Nonautologous Red Blood Cells into Peripheral Vein, Percutaneous Approach (ICD-10-PCS; 2019-06-10)
PROC: 0BH17EZ Insertion of Endotracheal Airway into Trachea, Via Natural or Artificial Opening (ICD-10-PCS; 2019-06-10)
PROC: 02HV33Z Insertion of Infusion Device into Superior Vena Cava, Percutaneous Approach (ICD-10-PCS; 2019-06-10)
PROC: B548ZZA Ultrasonography of Superior Vena Cava, Guidance (ICD-10-PCS; 2019-06-10)
PROC: 5A1945Z Respiratory Ventilation, 24-96 Consecutive Hours (ICD-10-PCS; 2019-06-12)
DX: A41.9 Sepsis, unspecified organism (principal); E43 Unspecified severe protein-calorie malnutrition; K65.9 Peritonitis, unspecified; J18.9 Pneumonia, unspecified organism; K65.1 Peritoneal abscess; K57.21 Diverticulitis of large intestine with perforation and abscess with bleeding; J96.00 Acute respiratory failure, unspecified whether with hypoxia or hypercapnia; J44.0 Chronic obstructive pulmonary disease with (acute) lower respiratory infection; Z99.11 Dependence on respirator [ventilator] status; G93.1 Anoxic brain damage, not elsewhere classified; B37.49 Other urogenital candidiasis; J98.11 Atelectasis; I47.1 Supraventricular tachycardia; J44.1 Chronic obstructive pulmonary disease with (acute) exacerbation; N12 Tubulo-interstitial nephritis, not specified as acute or chronic; Z16.12 Extended spectrum beta lactamase (ESBL) resistance; I46.9 Cardiac arrest, cause unspecified; R65.20 Severe sepsis without septic shock; K56.41 Fecal impaction; N18.9 Chronic kidney disease, unspecified; M81.0 Age-related osteoporosis without current pathological fracture; I12.9 Hypertensive chronic kidney disease with stage 1 through stage 4 chronic kidney disease, or unspecified chronic kidney disease; E78.5 Hyperlipidemia, unspecified; E11.22 Type 2 diabetes mellitus with diabetic chronic kidney disease; D64.9 Anemia, unspecified; L89.159 Pressure ulcer of sacral region, unspecified stage; B96.20 Unspecified Escherichia coli [E. coli] as the cause of diseases classified elsewhere; Z68.28 Body mass index [BMI] 28.0-28.9, adult; Z79.899 Other long term (current) drug therapy; Z87.440 Personal history of urinary (tract) infections; Z86.74 Personal history of sudden cardiac arrest; Z74.01 Bed confinement status
CPT/HCPCS: 36415; 36600; 71045; 71275; 74018; 80048; 80053; 80202-TC; 81000-TC; 82043; 82570; 82803-TC; 82962; 83735-TC; 83880; 84100-TC; 84302-TC; 84478-TC; 85025; 85610-TC; 85730-TC; 86886; 86900; 86901; 86920; 87040-TC; 87070; 87070-TC; 87075-TC; 87081; 87086; 87186-TC; 87205-TC; 88307; 92950; 93005; 94002; 94003; 94640; 94760; 95824; A5061; C1751; C1769; C9113; G0378; J0610; J1030; J1450; J1650; J1815; J1940; J2060; J2185; J2250; J2270; J2405; J2543; J2704; J2930; J3010; J3370; J3475; J3480; J3490; J7040; J7042; J7050; J7060; J7120; J7131; J7512; J7620; P9021; P9046; Q9967